=== PATIENT | female | born 1945 | race African-American/Black ===

== ENCOUNTER → 2021-02-26 | Outpatient (CLI) | payer OTHER, MEDICARE ==
[~2021-02-26] MED LIST: BIO PO; BIOTIN5000 MCG PO; CINNAMON500 MG PO; CO Q-10200 MG PO; COQ-10100 MG PO; FAMOTIDINE 20 M20 MG PO; IRBESARTAN-HCT1 EACH PO; MELOXICAM15 MG PO; METFORMIN HCL500 M3 PO; NEURONTIN 300M300 M2 PO; SIMVASTATIN40 MG PO; TRIPLE FLEX CA1 EACH PO; ZOLOFT50 M1 PO
[2021-02-26 14:14] LABS: HEMATOCRIT 36.3 % (37.0-47.0); HEMOGLOBIN 12.3 gm/dL (12.0-15.0); MCH 29.8 pg (26.0-34.0); MCHC 33.9 g/dL (28.0-37.0); MCV 87.8 fL (80.0-100.0); RBC 4.14 mil/uL (4.20-5.00); RDW 13.6 % (10.5-14.5); URINE BILIRUBIN NEGATIVE (Negative); URINE BLOOD NEGATIVE (Negative); URINE CLARITY CLEAR; URINE COLOR YELLOW; URINE GLUCOSE-RANDOM* NEGATIVE (Negative); URINE KETONES NEGATIVE (Negative); URINE LEUKOCYTES-REFLEX TRACE (Negative); URINE NITRITE-REFLEX NEGATIVE (Negative); URINE PROTEIN (DIPSTICK) NEGATIVE (Negative); URINE SPECIFIC GRAVITY <= 1.005 (1.005-1.035); URINE UROBILINOGEN 0.2 E.U./dl (0.2-1.0); WBC 6.1 thou/uL (4.0-11.0)
[2021-02-26 14:21] LABS: ALBUMIN 4.4 g/dL (3.4-5.0); CALCIUM 9.6 mg/dL (8.5-10.1); CREATININE 0.9 mg/dL (0.6-1.0); POTASSIUM 3.7 mmol/L (3.5-5.1)
[2021-02-26 14:37] LABS: INR 0.94; PROTIME 10.3 Seconds (10.5-12.1)
[2021-02-27 04:06] LABS: GLYCOHEMOGLOBIN (HGB A1C) 6.3 % (4.8-5.6)
== END ==
LOC: PAC 10:07
PROVIDERS: ATTEND Orthopaedic Surgery
DX: Z01.812 Encounter for preprocedural laboratory examination (principal); I10 Essential (primary) hypertension; E11.9 Type 2 diabetes mellitus without complications; M17.9 Osteoarthritis of knee, unspecified

== ENCOUNTER 2021-03-12 07:10 | Inpatient (IN) | payer OTHER, MEDICARE ==
[~2021-03-12] VITALS: Ht 152.4 cm; Wt 68.0 kg
[2021-03-12 09:01] VITALS: BP 160/68
[2021-03-12 19:28] VITALS: BP 128/60
--- NOTE | 2021-03-12 19:31 | NUR ---
Admitted to 4S. Left total knee replacement by Dr. Temple. A/O X 4. ROOM AIR. ONE ASSIST TO BEDSIDE COMMODE-TRANSFERS SLOW, STEADY. LEFT KNEE AIDA DRESSING, POLAR PACK, SCDS, AC HS ACCU CHECKS, D5 1/2 NS @ 100 MLS/HR VIA LEFT FOREARM. HAVING LEFT FOOT NUMBNESS, HAS NERVE PAIN. MORPHINE GIVEN FOR PAIN.
--- NOTE | 2021-03-13 04:19 | NUR ---
RECEIVED CARE OF THIS PATIENT AT 1900. PATIENT ALERT AND ORIENTED X4. UP TO BSC WITH SBA. HAS AIDA DRESSING ON L KNEE. HAS ELSIE'S, SCD'S AND POLAR ICE ALSO. ACCUCHECK WAS 250, HAS NO INSULIN COVERAGE. IV PATENT WITH FLUIDS INFUSING. C/O PAIN, MED GIVEN. SLEPT MOST OF NIGHT.
[2021-03-13 04:28] VITALS: BP 104/46
[2021-03-13 08:35] VITALS: BP 124/55
--- NOTE | 2021-03-13 09:52 | NUR ---
A/O X 4. ROOM AIR. STAND BY ASSIST. USES BEDSIDE COMMODE. LEFT AC IV WITH D5 1/2 NS INFUSING @ 100 MLS/HR. AC HS ACCU CHECK-119 @ BREAKFAST. LEFT KNEE AIDA DRAIN/DRESSING-DRY, CLEAN, AND INTACT. POLAR PACK TO LEFT KNEE. BILATERAL SCDS AND ELSIE HOSE ON. MINIMAL LEFT KNEE PAIN. /. HAS NERVE PAIN THAT IS CAUSING LEFT FOOT NUMBNESS. CHANGING POSTIONS HELPS HER NERVE PAIN-HANGING FEET OFF BED.
--- NOTE | 2021-03-13 11:40 | NUR ---
Case opened to follow for dc planning. CM role introduced to the pt at bedside. She is a&ox4 and indicates that she is normally indep with gait and adl's. She has no steps to enter her home and 12 up to her bedroom. She does not have a FWW and would need one to go home. She is anxious dcing home as she lives alone notes limited support system locally. She has a best friend and dpoa Ricarda Manning but she [place] out of state. She is hoping she can go to SNF at [facility] for a short stay to work on being indep with gait, tx, stairs, and indep with all her adl's. Nursing to request OT eval. Referral called and faxed to [facility]. They do have beds available for tomorrow. Medicare waiver in place. Pt could dc tomorrow. Message sent to the ortho INJECTION MOLDING MACHINE SETTER. Will follow.
[2021-03-13] MEDS ORDERED: TRI-BUFFERED A325 M1 PO (12:19)
[2021-03-13 16:07] VITALS: BP 120/47
[2021-03-13 19:15] VITALS: BP 132/54
[2021-03-14 03:59] VITALS: BP 118/49
--- NOTE | 2021-03-14 04:09 | NUR ---
RECEIVED CARE OF THIS PATIENT AT 1900. PATIENT ALERT AND ORIENTED X4. AIDA DRESSING ON L KNEE D/I. HAS ELSIE'S, SCD'S AND POLAR ICE ON KNEE ALSO. ACCUCHECK WAS 132, NO INSULIN COVERAGE. UP TO BSC WITH JUST SBA ONLY. C/O PAIN, MED GIVEN. SLEPT MOST OF NIGHT.
[2021-03-14 07:47] VITALS: BP 102/41
[2021-03-14 08:27] VITALS: BP 102/41
--- NOTE | 2021-03-14 12:05 | NUR ---
JUAN reviewed chart and spoke with nursing and attending physician. Pt has been accepted to [facility]. JUAN faxed OT eval and updated info to [facility] for review. Pt is medically stable for discharge today. Awaiting final discharge orders. Chart copy ordered. JUAN is following to assist as needed with discharge planning.
--- NOTE | 2021-03-14 12:37 | NUR ---
ASSUMED PT CARE THIS AM. PT IS ALERT & ORIENTED X4. PT HAS IV SITE ON LAC SALINE LOCKED. PT IS UP WITH ASSIST X1 WITH GAITBELT AND WALKER TO BEDSIDE COMMODE. PT IS ACCUCHECK ACHS. PT IS ON ROOM AIR. PT WAS WORKING WITH PHYSICAL THERAPY THIS AM. PT HAS AIDA DRESSING, POLAR PACK, BILATERAL ELSIE HOSES KNEE HIGH, SCD. GIVEN PAIN MEDICATION PRIOR WORKING WITH PHYSICAL THERAPY THIS AM. PT C/O OF CONSTIPATION AND GIVEN PRN MIRALAX THIS AM. PT TOLERATED DIET AND MEDICATION WELL. WILL CONTINUE TO MONITOR PT. FOLLOW POC.
--- NOTE | 2021-03-14 13:42 | O ---
[facility] [place] [address] OPERATIVE REPORT Name: BEHZAD ORDONEZ V Room #: 437-P ADM IN M.R.#: [id number] Admission: 03/12/21 Attend Phys: Moody Temple MD Discharge: Date of : 49 Report #: [id number] THIS REPORT FOR: cc: Jair Agarwal MD, Ralph R. MD Abraham,Moody Burch MD ~ DATE OF SERVICE: 03/12/2021 PREOPERATIVE DIAGNOSIS: Left knee osteoarthritis. POSTOPERATIVE DIAGNOSIS: Left knee osteoarthritis. PROCEDURE: Left total knee arthroplasty using Navio robotic assistance. SURGEON: Moody Temlpe MD. LAMP SHADE ASSEMBLER: Angelica Granda PA-C. INDICATION FOR LAMP SHADE ASSEMBLER: Throughout the case, extensive retraction, manipulation of the knee was required. This was afforded to me by my assistant director of residence life. ANESTHESIA: LMA with adductor canal block. IMPLANTS: [employer] size 3 cobalt chrome Journey II BCS femur, a size 2 tibia, size 13 constrained polyethylene and size 29 patella. TOURNIQUET TIME: 53 minutes. ESTIMATED BLOOD LOSS: 25 mL COMPLICATIONS: None. SPECIMENS: None. CONDITION UPON LEAVING THE OR: Stable. INDICATIONS FOR PROCEDURE: The patient is a 76-year-old female with left knee valgus osteoarthritis. She had failed conservative measures for this and after discussion with her, she elected for left total knee arthroplasty. DESCRIPTION OF PROCEDURE: Risks, benefits, alternatives, complications were discussed in detail with the patient including, but not limited to risk of anesthesia, risk of damage to nerves, arteries, blood vessels, risk for infection, bleeding, risk for continued knee pain, and need for reoperation. Informed consent was obtained from the patient. Left knee was appropriately marked in the preoperative holding area. IV Ancef was given for preoperative [address] [address] OPERATIVE REPORT Name: JOSÉ LUISBEHZAD V Room #: 437-P [facility] IN ..#: [id number] Admission: 03/12/21 Attend Phys: Moody Temple MD Discharge: Date of : 49 Report #: [id number] antibiotics. Adductor canal block was placed by anesthesia. She was brought to the operating room and placed in supine position on the operating table. LMA anesthesia was induced without complication. Tourniquet was placed on the left thigh. Left lower extremity was prepped and draped in normal sterile fashion. Timeout was performed properly identifying the patient and procedure as well as the instrumentation and implants. All in the operating room in agreement. Left lower extremity was exsanguinated and tourniquet inflated. Tourniquet time was 53 minutes. Standard midline approach to the knee was made with 10 blade through the skin. Dissection was taken down sharply to the fascia and deep flaps were developed medially and laterally. Fresh 10 blade was used to make a medial parapatellar arthrotomy and the knee was inspected. There was severe lateral compartment osteoarthritis with moderate medial and patellofemoral compartment osteoarthritis. ACL and PCL were removed sharply. Reference pins were placed in the femur and the tibia. The knee was digitally mapped using the [employer] robotic system. Intraoperative plan was made. We sized the size 3 femur, size 2 tibia, and a . After acceptance of the intraoperative plan, the distal femoral cut was made with Navio bur. Distal femoral cutting block was pinned in place and chamfer cuts were made. Attention was turned to the tibia. Remainder of the menisci removed with Bovie cautery. Tibial resection guide was pinned in place using Navio for placement and tibial resection was made. Flexion and extension gaps were checked and found to have good balance laterally in flexion and extension. Medially, she did open up slightly and this was not surprising based on her underlying valgus deformity. It was felt we could make up for this with a constrained implant. Tibia was sized, found to be a size 2. A size 2 tibial trial was placed, pinned and punch. A size 3 femoral trial was placed and box cut was made. This was then trialed with a size 10 up to a size 13 polyethylene. Size 13 polyethylene demonstrated 1-2 mm of laxity laterally throughout range of motion of the knee with up to 3-4 mm medially. Again, it was felt we can make up for this with a constrained implant. A 9 mm of bone was resected from the posterior surface of the patella and a size 29 patellar trial button was placed. Knee was taken through range of motion, found to be stable, found to have good patellar tracking. Trial components were removed. Bone ends were thoroughly irrigated with normal saline. A final size 2, tibia size 3 Journey II BCS cobalt chrome femur, and a size 29 patella were cemented in place using standard cementation techniques. While the cement cured, a periarticular injection consisting of morphine, ropivacaine, epinephrine, Toradol was placed around the knee joint capsule. After the cement cured, the tourniquet was deflated. Hemostasis was obtained with Bovie cautery. A final size 13 constrained polyethylene was placed. A gram of vancomycin was placed deep in the joint. The fascia was closed with 0 Vicryl. Skin was closed with 2-0 Vicryl. Skin staple and a AIDA dressing was applied. The patient tolerated [address] [address] OPERATIVE REPORT Name: BEHZAD ORDONEZ V Room #: 437-P [facility] IN M.R.#: [id number] Admission: 03/12/21 Attend Phys: Moody Temple MD Discharge: Date of : 49 Report #: [id number] this procedure well and went to recovery room under care of anesthesia postoperatively. <ELECTRONICALLY SIGNED> By: Moody Temple MD 03/14/21 1342 [id number] Moody Temple MD /nt
== END 2021-03-14 17:33 | DRG 470 ==
LOC: OR → 4S 15:25 → OR 15:36 → 4S 03-14 17:33
PROVIDERS: ADMIT Orthopaedic Surgery; ATTEND Orthopaedic Surgery
PROC: 8E0Y0CZ Robotic Assisted Procedure of Lower Extremity, Open Approach (ICD-10-PCS; principal; 2021-03-12)
PROC: 0SRD0J9 Replacement of Left Knee Joint with Synthetic Substitute, Cemented, Open Approach (ICD-10-PCS; principal; 2021-03-12)
DX: M17.12 Unilateral primary osteoarthritis, left knee (principal); Z20.822 Contact with and (suspected) exposure to COVID-19; Z88.6 Allergy status to analgesic agent
CPT/HCPCS: 10102; 50010; 50101; 50415; 50954; 51130; 51225; 51412; 53000; 53078; 54118; 56527; 56528; 57095; 57103; 57110; 57127; 57179; 58239; 59024; 62110; 62900; 64043; 65060; 70005